=== PATIENT | male | born 1950 | race Caucasian/White ===

== ENCOUNTER 2017-04-18 20:57 | Emergency (ER) | payer MEDICARE ==
[2017-04-18] MEDS ORDERED: NS 0.9% 1000 ML* 1,000 ML IV ONE (22:59)
[2017-04-18 23:23] LABS: Hematocrit 41 % (42-52); Hemoglobin 14.3 g/dl (14.0-18.0); Mean Corpuscular HGB Conc 35 g/dl (31-36); Mean Corpuscular Hemoglobin 34 pg (27-31); Mean Corpuscular Volume 96 fL (80-94); Mean Platelet Volume 9 um3 (7.4-10.4); Red Blood Count 4.27 10^6/ul (4.0-5.4); Red Cell Distribution Width 13 % (10.5-15)
[2017-04-18 23:38] LABS: Albumin 4.2 g/dL (3.2-5.2); Calcium 9.1 mg/dL (8.6-10.3); EGFR African American 118.5 (>60); EGFR Non-African American 92.1 (>60); Globulin 2.5 g/dL (2-4); Potassium 3.5 mmol/L (3.5-5.0); Total Bilirubin 1.3 mg/dL (0.2-1.0); Total Protein 6.7 g/dL (6.4-8.9)
[2017-04-18 23:41] LABS: Urine Bilirubin Negative (Negative); Urine Glucose Negative (Negative); Urine Nitrite Negative (Negative)
[2017-04-19 00:43] VITALS: BP 145/94
--- NOTE | 2017-04-19 07:41 | RAD ---
INDICATION: Fever. COMPARISON: There are no prior studies available for comparison. TECHNIQUE: A portable view of the chest was obtained. FINDINGS: Cardiac and mediastinal contours appear to be within normal limits. The lungs are clear. No pleural effusion is seen. IMPRESSION: NO EVIDENCE FOR ACUTE DISEASE.
--- NOTE | 2017-04-20 00:35 | ED ---
Sridhar Stevenson Angela, scribed for Odilia Munoz MD on 04/18/17 at 2305 . HPI Febrile Illness - HPI Summary HPI Summary: This pt is a 66 y/o male presenting to [facility] c/o nausea, diarrhea, chills and tremors since 1600 today. Pt reports a subjective fever as he did not take his temperature. Pt denies chest pain, SOB, nausea, abd pain, new back pain, dysuria , hematuria, bloody stools. 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 Pt is currently being treated for depression and anxiety. He denies SI or HI. He states he took a double dose of his Citalopram. Pt states he drinks every night 3-4 glasses of wine. PSHx: hernia surgery. - History of Current Complaint Chief Complaint: EDFever Hx Obtained From: Patient Onset/Duration: Started Hours Ago Timing: Lasting Hours Pain Intensity: 6 Pain Scale Used: 0-10 Numeric Aggravating Factors: Nothing Alleviating Factors: Nothing Associated Signs and Symptoms: Chills, Other: - tremors - Allergy/Home Medications Allergies/Adverse Reactions: Allergies Allergy/AdvReac Type Severity Reaction Status Date / Time Penicillins Allergy Nausea And Verified 04/18/17 21:10 Vomiting Sulfa Antibiotics Allergy Nausea And Verified 04/18/17 21:10 Vomiting PMH/Surg Hx/FS Hx/Imm Hx Endocrine/Hematology History: Denies: Hx Diabetes Cardiovascular History: Denies: Hx Hypertension Infectious Disease History: No Infectious Disease History: Denies: Traveled Outside the [place] in Last 30 Days - Family History Known Family History: Negative: Blood Disorder - Social History Alcohol Use: Daily Alcohol Amount: 3-4 glasses of wine Substance Use Type: Reports: None Smoking Status (MU): Never Smoked Tobacco Review of Systems Positive: Fever, Chills Eyes: Negative ENT: Negative Cardiovascular: Negative Respiratory: Negative Positive: Vomiting, Diarrhea, Nausea Genitourinary: Negative Skin: Negative Neurological: Negative Psychological: Normal All Other Systems Reviewed And Are Negative: No Physical Exam Triage Information Reviewed: Yes Vital Signs On Initial Exam: Initial Vitals Temp Pulse Resp BP Pulse Ox 99.1 F 94 18 163/103 96 04/18/17 21:06 04/18/17 21:06 04/18/17 21:06 04/18/17 21:06 04/18/17 21:06 Vital Signs Reviewed: Yes Appearance: Positive: Well-Nourished Skin: Positive: Warm, Skin Color Reflects Adequate Perfusion, Dry Head/Face: Positive: Normal Head/Face Inspection Eyes: Positive: Normal ENT: Positive: Other - Minimally dry oral mucosa Neck: Positive: Supple, Nontender Respiratory/Lung Sounds: Positive: Clear to Auscultation, Breath Sounds Present Cardiovascular: Positive: Normal, RRR Abdomen Description: Positive: Nontender, Soft Musculoskeletal: Positive: Normal, Other - No LE swelling. Negative: Edema Left , Edema Right Neurological: Positive: Normal, Sensory/Motor Intact, Alert, Oriented to Person Place, Time Psychiatric: Positive: Normal Diagnostics - Vital Signs Vital Signs Temp Pulse Resp BP Pulse Ox 04/18/17 22:22 99.3 F 04/18/17 22:11 77 93 04/18/17 22:10 155/85 04/18/17 21:06 99.1 F 94 18 163/103 96 - Laboratory Lab Results: Lab Results 04/18/17 04/18/17 04/18/17 Range/Units 23:10 23:10 23:10 WBC 5.0 (3.5-10.8) 10^3/ul RBC 4.27 (4.0-5.4) 10^6/ul Hgb 14.3 (14.0-18.0) g/dl Hct 41 L (42-52) % MCV 96 H (80-94) fL MCH 34 H (27-31) pg MCHC 35 (31-36) g/dl RDW 13 (10.5-15) % Plt Count 221 (150-450) 10^3/ul MPV 9 (7.4-10.4) um3 Neut % (Auto) 70.0 (38-83) % Lymph % (Auto) 15.2 L (25-47) % [place] % (Auto) 13.1 H (1-9) % Eos % (Auto) 0.5 (0-6) % Baso % (Auto) 1.2 (0-2) % Absolute Neuts (auto) 3.5 (1.5-7.7) 10^3/ul Absolute Lymphs (auto) 0.8 L (1.0-4.8) 10^3/ul Absolute Monos (auto) 0.7 (0-0.8) 10^3/ul Absolute Eos (auto) 0 (0-0.6) 10^3/ul Absolute Basos (auto) 0.1 (0-0.2) 10^3/ul Absolute Nucleated RBC 0 10^3/ul Nucleated RBC % 0 Sodium 136 (133-145) mmol/L Potassium 3.5 (3.5-5.0) mmol/L Chloride 99 L (101-111) mmol/L Carbon Dioxide 26 (22-32) mmol/L Anion Gap 11 (2-11) mmol/L BUN 10 (6-24) mg/dL Creatinine 0.83 (0.67-1.17) mg/dL Est GFR ( Amer) 118.5 (>60) Est GFR (Non-Af Amer) 92.1 (>60) BUN/Creatinine Ratio 12.0 (8-20) Glucose 106 H (70-100) mg/dL Lactic Acid 1.2 (0.5-2.0) mmol/L Calcium 9.1 (8.6-10.3) mg/dL Total Bilirubin 1.30 H (0.2-1.0) mg/dL AST 75 H (13-39) U/L ALT 30 (7-52) U/L Alkaline Phosphatase 117 H (34-104) U/L Total Protein 6.7 (6.4-8.9) g/dL Albumin 4.2 (3.2-5.2) g/dL Globulin 2.5 (2-4) g/dL Albumin/Globulin Ratio 1.7 (1-3) Urine Color Urine Appearance Urine pH (5-9) Ur Specific [place] (1.010-1.030) Urine Protein (Negative) Urine Ketones (Negative) Urine Blood (Negative) Urine Nitrate (Negative) Urine Bilirubin (Negative) Urine Urobilinogen (Negative) Ur Leukocyte Esterase (Negative) Urine Glucose (Negative) 04/18/17 Range/Units 23:29 WBC (3.5-10.8) 10^3/ul RBC (4.0-5.4) 10^6/ul Hgb (14.0-18.0) g/dl Hct (42-52) % MCV (80-94) fL MCH (27-31) pg MCHC (31-36) g/dl RDW (10.5-15) % Plt Count (150-450) 10^3/ul MPV (7.4-10.4) um3 Neut % (Auto) (38-83) % Lymph % (Auto) (25-47) % [place] % (Auto) (1-9) % Eos % (Auto) (0-6) % Baso % (Auto) (0-2) % Absolute Neuts (auto) (1.5-7.7) 10^3/ul Absolute Lymphs (auto) (1.0-4.8) 10^3/ul Absolute Monos (auto) (0-0.8) 10^3/ul Absolute Eos (auto) (0-0.6) 10^3/ul Absolute Basos (auto) (0-0.2) 10^3/ul Absolute Nucleated RBC 10^3/ul Nucleated RBC % Sodium (133-145) mmol/L Potassium (3.5-5.0) mmol/L Chloride (101-111) mmol/L Carbon Dioxide (22-32) mmol/L Anion Gap (2-11) mmol/L BUN (6-24) mg/dL Creatinine (0.67-1.17) mg/dL Est GFR ( Amer) (>60) Est GFR (Non-Af Amer) (>60) BUN/Creatinine Ratio (8-20) Glucose (70-100) mg/dL Lactic Acid (0.5-2.0) mmol/L Calcium (8.6-10.3) mg/dL Total Bilirubin (0.2-1.0) mg/dL AST (13-39) U/L ALT (7-52) U/L Alkaline Phosphatase (34-104) U/L Total Protein (6.4-8.9) g/dL Albumin (3.2-5.2) g/dL Globulin (2-4) g/dL Albumin/Globulin Ratio (1-3) Urine Color Straw Urine Appearance Clear Urine pH 8.0 (5-9) Ur Specific [place] 1.004 L (1.010-1.030) Urine Protein Negative (Negative) Urine Ketones Trace H (Negative) Urine Blood Negative (Negative) Urine Nitrate Negative (Negative) Urine Bilirubin Negative (Negative) Urine Urobilinogen Negative (Negative) Ur Leukocyte Esterase Negative (Negative) Urine Glucose Negative (Negative) Result Diagrams: 04/18/17 23:10 04/18/17 23:10 Lab Statement: Any lab studies that have been ordered have been reviewed, and results considered in the medical decision making process. - Radiology Chest XR Xray Interpretation: No Acute Changes - Chest XR is normal. Radiology Interpretation Completed By: ED Physician Re-Evaluation - Re-Evaluation First Eval Re-Evaluation Time: 12:12 Comment: I reviewed lab and chest XR results with the pt. Course/Dx - Course Assessment/Plan: Pt is a 66 y/o male presenting to [facility] c/o nausea, diarrhea, chills and tremors since 1600 today. In the ED, pt was given IV fluids. Chest XR is normal. Pt will be discharged and is advised to follow up with his PCP. - Diagnoses Provider Diagnoses: Nausea and vomiting, Diarrhea Discharge - Discharge Plan Condition: Stable Disposition: HOME Patient Education Materials: Acute Nausea and Vomiting (ED), Acute Diarrhea (ED ) Referrals: Robert Ahn MD [Primary Care Provider] - 2 Days Additional Instructions: resume usual activities. return if worse or any new symptoms. It is important to follow up with your primary care physician 1-2 days. The documentation as recorded by the Sridhar kowalski Angela accurately reflects the service I personally performed and the decisions made by , Odilia Munoz MD.
== END 2017-04-19 00:56 | disposition home or self-care (01) ==
LOC: ED 20:57
DX: R11.2 Nausea with vomiting, unspecified (principal); R19.7 Diarrhea, unspecified; R50.9 Fever, unspecified
CPT/HCPCS: 36415; 71010; 80053; 81003; 83605; 85025; 96360; 99283

== ENCOUNTER 2019-07-29 16:40 | Inpatient (IN) | payer MEDICARE ==
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
[2019-07-29] MEDS ORDERED: NS 0.9% 1000 ML** 1,000 ML IV ONE ×2 (17:09→19:20)
--- NOTE | 2019-07-29 17:32 | ED ---
Complex/Multi-Sys Presentation - HPI Summary HPI Summary: Per daughter patient complains of tremors, decreased memory, generalized weakness. Patient has had prior episodes of same over the past few months but symptoms are progressive and worse today than before. Daughter states patient couldn't even get out of bed today. Patient is normally ambulatory, exercises regularly on the elliptical. Patient states he has been eating less, as he just does not feel like eating over the past couple weeks. Patient is vegetarian. When patient asked if he drinks alcohol, patient's answer varies. Nurse states she told him he had 5 glasses of wine daily, patient of this provider he had 2 glasses of wine daily. Daughter and patient deny headache, vision change, unilateral deficits, speech change, altered mental status, facial droop, fever, cough, sore throat, CP, SOB, N/V/V abdominal pain, change in urine, change in BM. Patient is hypertensive in triage. Denies history of hypertension. No anti-coag. - History Of Current Complaint Chief Complaint: EDWeakness Time Seen by Provider: 07/29/19 17:02 Hx Obtained From: Patient, Family/Associate Veterinarian Onset/Duration: Gradual Onset, Lasting Days Timing: Constant Severity Currently: Moderate Severity Initially: Moderate Associated Signs And Symptoms: Positive: Weakness - Allergies/Home Medications Allergies/Adverse Reactions: Allergies Allergy/AdvReac Type Severity Reaction Status Date / Time Penicillins AdvReac Nausea And Verified 07/29/19 18:31 Vomiting Sulfa (Sulfonamide AdvReac Nausea And Verified 07/29/19 18:31 Antibiotics) Vomiting Home Medications: Home Medications Ammonium Lactate 12% [Lac-Hydrin 12 %] 12 % TOPICAL BID 07/29/19 [History Confirmed 07/29/19] Atorvastatin* [Lipitor*] 40 mg PO DAILY 07/29/19 [History Confirmed 07/29/19] Fluoxetine (Nf) Cap [Fluoxetine HCl] 40 mg PO DAILY 07/29/19 [History Confirmed 07/29/19] Imipramine (NF) 25 mg PO BEDTIME 07/29/19 [History Confirmed 07/29/19] Multivitamin/Iron/Folic Acid [Daily Vitamin Formula+Ir] 1 tab PO DAILY 07/29/19 [History Confirmed 07/29/19] PMH/Surg Hx/FS Hx/Imm Hx Endocrine/Hematology History: Denies: Hx Diabetes Cardiovascular History: Denies: Hx Hypertension History: Denies: Hx Dialysis Sensory History: Denies: Hx Eye Prosthesis Opthamlomology History: Denies: Hx Legally Blind EENT History: Denies: Hx Deafness Neurological History: Denies: Hx Dementia - Immunization History Date of Influenza Vaccine: 04/25 Immunizations Up to Date: Yes Infectious Disease History: No Infectious Disease History: Denies: Traveled Outside the [place] in Last 30 Days - Family History Known Family History: Negative: Blood Disorder - Social History Alcohol Use: Daily Alcohol Amount: 3-4 glasses of wine Substance Use Type: Reports: None Smoking Status (MU): Never Smoked Tobacco Review of Systems Positive: Fatigue Eyes: Negative ENT: Negative Cardiovascular: Negative Respiratory: Negative Gastrointestinal: Negative Genitourinary: Negative Musculoskeletal: Negative Skin: Negative Positive: Weakness Psychological: Normal All Other Systems Reviewed And Are Negative: Yes Physical Exam - Summary Physical Exam Summary: Intentional tremors noted to hands. No cogwheel rigidity noted. No diaphoresis , nausea or vomiting or anxiety noted. Patient calm and cooperative and coherent. Neuro exam normal. Abdomen soft nontender. Lung sounds clear to auscultation bilaterally. Mildly tachycardic. Triage Information Reviewed: Yes Vital Signs On Initial Exam: Initial Vitals Temp Pulse Resp BP Pulse Ox 97.8 F 96 16 179/109 98 07/29/19 16:49 07/29/19 16:49 07/29/19 16:49 07/29/19 16:49 07/29/19 16:49 Vital Signs Reviewed: Yes Appearance: Positive: Well-Appearing Skin: Positive: Warm Head/Face: Positive: Normal Head/Face Inspection Eyes: Positive: Normal Neck: Positive: Supple Respiratory/Lung Sounds: Positive: Clear to Auscultation Cardiovascular: Positive: Normal Abdomen Description: Positive: Nontender Musculoskeletal: Positive: Normal Neurological: Positive: Normal Psychiatric: Positive: Normal AVPU Assessment: Alert - [place] Coma Scale Best Eye Response: 4 - Spontaneous Best Motor Response: 6 - Obeys Commands Best Verbal Response: 5 - Oriented Coma Scale Total: 15 Procedures - Sedation Patient Received Moderate/Deep Sedation with Procedure: No Diagnostics - Vital Signs Vital Signs Temp Pulse Resp BP Pulse Ox 07/29/19 17:12 17 07/29/19 16:56 98.6 F 98 14 194/117 98 07/29/19 16:49 97.8 F 96 16 179/109 98 - Laboratory Result Diagrams: 07/30/19 04:28 07/30/19 04:28 Lab Statement: Any lab studies that have been ordered have been reviewed, and results considered in the medical decision making process. Complex Multi-Symp Course/Dx Course Of Treatment: Per daughter patient complains of tremors, decreased memory , generalized weakness. Patient has had prior episodes of same over the past few months but symptoms are progressive and worse today than before. Daughter states patient couldn't even get out of bed today. Patient is normally ambulatory, exercises regularly on the elliptical. Patient states he has been eating less, as he just does not feel like eating over the past couple weeks. Patient is vegetarian. When patient asked if he drinks alcohol, patient's answer varies. Nurse states she told him he had 5 glasses of wine daily, patient of this provider he had 2 glasses of wine daily. Daughter and patient deny headache, vision change, unilateral deficits, speech change, altered mental status, facial droop, fever, cough, sore throat, CP, SOB, N/V/V abdominal pain, change in urine, change in BM. Patient is hypertensive in triage. Denies history of hypertension. No anti-coag. Elevated BP. Mildly tachycardic. Vital signs otherwise within normal limits. EKG sinus tachycardia , heart rate of 100, prolonged QT interval. Brain CT unremarkable. Lactic 7.4. PH 7.28. CO2 18. Anion gap 22. Total bili 1.6, near patient baseline. AST 98. Alkaline phosphatase 166. EtOH 90. 3 L normal saline administered. One banana bag. Ativan 1 mg 1, Ativan 2 mg IV 1. Tremors resolved with Ativan. Second troponin 0.08. Initial troponin 0.01. Repeat EKG sinus tachycardia with heart rate of 109. Prolonged QT interval. Admitted to hospitalist for alcoholic ketoacidosis. - Diagnoses Provider Diagnoses: Alcoholic ketoacidosis, Coarse tremors, Weakness Discharge ED - Sign-Out/Discharge Documenting (check all that apply): Patient Departure - Discharge Plan Condition: Stable Disposition: ADMITTED TO [facility] - Billing Disposition and Condition Condition: STABLE Disposition: Admitted to [facility] - Attestation Statements Provider Attestation: I agree w LETA documentation, briefly this is a 69 y/o male pw concern for AKA. Given fluids, banana bag. Had elevated troponin, no CP, repeat EKG w/o e/o ischemia. ADmit Betsey Garcia MD
[2019-07-29 17:53] LABS: ABS Basophils 0.1 10^3/ul (0-0.2); ABS Lymphocytes 0.9 10^3/ul (1.0-4.8); ABS Monocytes 0.6 10^3/ul (0-0.8); Eosinophil % 0.1 %; Hematocrit 45 % (42-52); Hemoglobin 15.6 g/dL (14.0-18.0); Mean Corpuscular HGB Conc 35 g/dL (31-36); Mean Corpuscular Hemoglobin 35 pg (27-31); Mean Corpuscular Volume 100 fL (80-94); Mean Platelet Volume 7.9 fL (7.4-10.4); Platelet Count 262 10^3/uL (150-450); Red Cell Distribution Width 13 % (10-15); White Blood Count 9.6 10^3/uL (3.5-10.8)
[2019-07-29 18:12] LABS: Troponin I 0.01 ng/mL (<0.03)
[2019-07-29 18:13] LABS: ALT 36 U/L (7-52); AST 98 U/L (13-39); Albumin 4.5 g/dL (3.2-5.2); Albumin/Globulin Ratio 1.5 (1-3); Alkaline Phosphatase 166 U/L (34-104); Anion Gap 22 mmol/L (2-11); BUN/Creatinine Ratio 20.5 (8-20); Blood Urea Nitrogen 15 mg/dL (6-24); C Reactive Protein < 1.00 mg/L (<8.01); CO2 Carbon Dioxide 18 mmol/L (22-32); Calcium 9.1 mg/dL (8.6-10.3); Chloride 99 mmol/L (101-111); EGFR African American 128.2 (>60); EGFR Non-African American 105.9 (>60); Globulin 3.1 g/dL (2-4); Glucose 79 mg/dL (70-100); Magnesium 1.9 mg/dL (1.9-2.7); Potassium 3.6 mmol/L (3.5-5.0); Sodium 139 mmol/L (135-145); Total Protein 7.6 g/dL (6.4-8.9)
[2019-07-29 18:15] LABS: Urine Appearance Clear; Urine Bilirubin Negative (Negative); Urine Blood Negative (Negative); Urine Color Yellow; Urine Glucose Negative (Negative); Urine Ketones 2+ (Negative); Urine Nitrite Negative (Negative); Urine Protein Negative (Negative); Urine Specific Gravity 1.016 (1.010-1.030); Urine Urobilinogen Negative (Negative)
[2019-07-29 18:21] LABS: Alcohol 90 mg/dL (<10)
[2019-07-29] MEDS ORDERED: Thiamine INJ* 100 MG, Folic Acid IV* 1 MG, Multiple Vitamin IV ADULT* 10 ML in NS 0.9% ... IV ONE (18:22)
[2019-07-29] MEDS ORDERED: LORazepam INJ* 2 MG/ML 1 ML VIAL IV PUSH ONE (18:24)
[2019-07-29] MEDS ORDERED: Lorazepam PYXIS KEY PRN ×2 (18:24→19:19)
[2019-07-29 18:31] LABS: TSH (Thyroid Stimulating Horm) 1.52 mcIU/mL (0.34-5.60)
[2019-07-29] MEDS ORDERED: LORazepam INJ* 2 MG/ML 1 ML VIAL IV ONE (19:19)
[2019-07-29] MEDS ORDERED: Lorazepam PYXIS KEY ONE (19:22)
[2019-07-29 20:15] LABS: Hepatitis B Surface Antigen Nonreactive (Nonreactive)
[2019-07-29 20:32] LABS: Hepatitis C Antibody Negative (Negative)
[2019-07-29 20:43] LABS: Troponin I 0.08 ng/mL (<0.03)
[2019-07-29] MEDS ORDERED: Acetaminophen TAB* 325 MG PO PRN (21:03)
[2019-07-29] MEDS ORDERED: LORazepam TAB(*) 1 MG PO ONE (21:14)
[2019-07-29] MEDS ORDERED: NS 0.9% 1000 ML** 1,000 ML IV SCH (21:15)
[2019-07-29 21:29] LABS: Magnesium 1.6 mg/dL (1.9-2.7)
[2019-07-29] MEDS ORDERED: Ondansetron INJ* 2 MG/ML VIAL IV PRN (21:32)
[2019-07-29] MEDS: Enoxaparin(*) 40 MG/0.4 ML SYR SUBCUT SCH (23:19)
[2019-07-29] MEDS: NS 0.9% 1000 ML** 1,000 ML IV SCH (23:20)
[2019-07-30 00:11] LABS: Influenza A Molecular NEGATIVE (Negative); Influenza B Molecular NEGATIVE (Negative)
--- NOTE | 2019-07-30 00:39 | HP ---
ADMISSION HISTORY AND PHYSICAL: DATE OF ADMISSION: 07/29/19 PRIMARY CARE PROVIDER: Dr. Ahn. PROVIDER: Everardo Orozco NP. ATTENDING PHYSICIAN: Dr. Jordan Herring.* (DICTATED BY EVERARDO OROZCO NP) CHIEF COMPLAINT: Tremors, weakness. HISTORY OF PRESENT ILLNESS: This is a 69-year-old male with a past medical history significant for hyperlipidemia, depression, anxiety and recently diagnosed hypertension, who came to the emergency room on 07/29/19 for several- week history of worsening tremors, decreased memory and generalized weakness. He stated that he used to work out every day on his elliptical, but his workouts have slowed down secondary to his weakness. Denies having fall at the time that he noticed his symptoms starting and he stated he felt congested for a few days where he was coughing, though had no sneezing with occasionally short of breath with exertion. Denied any chest pain or palpitations. He also states that he has had loose stool intermittently for a few weeks, tends to go about twice a day that is on the more liquid side. He also reports having had poor appetite over the past few weeks and has not had a solid meal in 2 days, and he drinks about 2 to 4 glasses of wine at night and states that his pattern of intake has not changed. His last alcoholic drink was last night. In the emergency room, he received banana bag IV fluids and IV as well as p.o. Ativan. EKG, brain CT, liver ultrasound were performed and hospice was asked to evaluate the patient for admission. PAST MEDICAL HISTORY: 1. Hyperlipidemia. 2. Hypertension. 3. Anxiety. 4. Depression. 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 PAST SURGICAL HISTORY: None. HOME MEDICATIONS: 1. Imipramine 25 mg p.o. at bedtime. 2. Fluoxetine 40 mg p.o. daily. 3. Multivitamin 1 tablet p.o. daily. 4. Atorvastatin 40 mg p.o. daily. 5. Ammonium lactate topically 12% one application b.i.d. ALLERGIES: To PENICILLIN and SULFA. FAMILY HISTORY: Father had an [place] at 48, at 64. Mother had depression. Sister had hypertension. SOCIAL HISTORY: Denies tobacco use or recreational substance use. His reported alcohol intake is 2 to 4 glasses of wine at night. He is retired, used to work at [employer]. He is and has 2 stepchildren. He exercises regularly on elliptical up until several weeks ago. REVIEW OF SYSTEMS: A 14-point system review was performed which was positive for poor appetite, tremors, poor memory, generalized weakness, coughing, occasional shortness of breath, loose stools. It was negative for chest pain, fevers, chills, hemoptysis, nausea, vomiting, abdominal pain, dysuria, dysphagia , rashes, lesions, or arthralgias or myalgias. PHYSICAL EXAMINATION GENERAL: This is a well-developed gentleman seen resting in the stretcher, appears unkempt in mild distress, is tremoring. VITAL SIGNS: 98.6 Fahrenheit, 109 pulse, 18 respirations, 97% oxygen on room air, 159/81 blood pressure. HEENT: Conjunctivae pink and moist. PERRLA. EOMs intact. Oropharynx clear. Mucous membranes dry. . NECK: Supple. No cervical or supraclavicular lymphadenopathy noted. RESPIRATORY: Lung sounds clear throughout bilaterally on room air. No accessory muscle use noted. CARDIAC: S1, S2 present. Heart rate regular, but tachy. No murmurs, gallops or rubs appreciated. +2 positive pedal pulses. No lower extremity edema. ABDOMEN: Soft, nontender, nondistended with positive bowel sounds x4. MUSCULOSKELETAL: No clubbing or cyanosis of the digits. Full range of motion. SKIN: The face is red and peely. No other rashes or open areas appreciated. NEUROLOGIC: Sensation intact to light touch. No focal deficits appreciated. PSYCH: Alert and oriented x3. Thought content organized. PERTINENT LABORATORY DATA: White blood cell count 9.6. Venous blood gas: VBG pH of 7.28, VBG pCO2 32, VBG pO2 52.0, VBG HCO3 16.3, VBG O2 saturation 84.6 , VBG base excess -10.6, chloride 99, carbon dioxide 18, anion gap 22, BUN and creatinine ratio 20.5, lactic acid 4.4 down from 7.4, total bilirubin 1.6. AST 98, ALT 36, alkaline phosphatase 166. Troponin 0.08, B-natriuretic peptide 35. Urine is negative. Serum alcohol is 90. DIAGNOSTIC STUDIES: CT of the brain showed no acute intracranial pathology. Chest x-ray showed no acute cardiopulmonary disease. ASSESSMENT AND PLAN: My impression, this is a 69-year-old male with past medical history significant for hyperlipidemia, hypertension, depression and anxiety, who is admitted on 07/29/19 for alcoholic ketoacidosis. 1. Alcoholic ketoacidosis. We will place the patient on WAM protocol and hydrate with normal saline at 100 mL an hour, will receive 2 mg of p.o. Ativan standing b.i.d., and folic and thiamine daily. Placed the patient on telemetry monitoring and order physical therapy due to his reported ongoing weakness. Other differentials include seizures. 2. Hypertension. The patient came in to the emergency room hypertensive in the 190s/one teens as high as 212/129, though without intervention he has decreased to be 150s/80s. The patient stated that he was started on blood pressure medications 2 weeks ago without any previous history of hypertension. He is unable to remember the medication that he typically takes so he believes it might be hydrochlorothiazide which we will hold during his stay as we are trying to hydrate him and instead start him on clonidine. 3. Depression/anxiety. We will continue his fluoxetine and imipramine; however , it is a possibility that his imipramine may be contributing to his tremors though I feel it is more likely secondary to EtOH use. 4. Hyperlipidemia. Continue atorvastatin. 5. DVT prophylaxis. Initiate Lovenox use. 6. Code status is full code. DISPOSITION: To admit OBV to [address] [place] [address]. CONDITION: Guarded. TIME SPENT: Time spent on the patient is about 60 minutes with half of that spent [id number]. EVERARDO OROZCO, DIRECTOR OF NURSING [id number]/CPS #: [id number] MTDD
[2019-07-30] MEDS: LORazepam TAB(*) 1 MG PO SCH ×3 (01:19→20:40)
[2019-07-30 01:30] LABS: Troponin I 0.11 ng/mL (<0.03)
[2019-07-30 04:52] LABS: ABS Basophils 0.1 10^3/ul (0-0.2); ABS Lymphocytes 0.8 10^3/ul (1.0-4.8); ABS Monocytes 0.7 10^3/ul (0-0.8); ABS Neutrophils 2.7 10^3/ul (1.5-7.7); Eosinophil % 0.7 %; Hematocrit 36 % (42-52); Hemoglobin 12.6 g/dL (14.0-18.0); Lymphocyte % 19.3 %; Mean Corpuscular HGB Conc 35 g/dL (31-36); Mean Corpuscular Hemoglobin 34 pg (27-31); Mean Corpuscular Volume 97 fL (80-94); Mean Platelet Volume 7.8 fL (7.4-10.4); Nucleated Red Blood Cells % 0.1; Platelet Count 208 10^3/uL (150-450); Red Blood Count 3.73 10^6 /uL (4.18-5.48); Red Cell Distribution Width 13 % (10-15); White Blood Count 4.3 10^3/uL (3.5-10.8)
[2019-07-30 04:57] LABS: INR 1.02 (0.82-1.09)
[2019-07-30 05:12] LABS: Cholesterol 184 mg/dL; HDL Cholesterol 95.4 mg/dL; LDL Cholesterol 79 mg/dL; Triglycerides 50 mg/dL
[2019-07-30 05:20] LABS: Troponin I 0.08 ng/mL (<0.03)
[2019-07-30 05:24] LABS: Anion Gap 10 mmol/L (2-11); BUN/Creatinine Ratio 18.5 (8-20); Blood Urea Nitrogen 12 mg/dL (6-24); CO2 Carbon Dioxide 23 mmol/L (22-32); Calcium 7.8 mg/dL (8.6-10.3); Chloride 102 mmol/L (101-111); EGFR African American 146.5 (>60); EGFR Non-African American 121.1 (>60); Glucose 81 mg/dL (70-100); Potassium 3.8 mmol/L (3.5-5.0); Sodium 135 mmol/L (135-145)
[2019-07-30] MEDS: FLUoxetine CAP* 20 MG PO SCH (08:45)
[2019-07-30] MEDS: Atorvastatin* 40 MG TAB PO SCH (08:45)
[2019-07-30] MEDS: Thiamine TAB* 100 MG TAB PO SCH (08:45)
[2019-07-30] MEDS: Multivitamins/Minerals TAB PO SCH (08:46)
[2019-07-30] MEDS: Folic Acid TAB* 1 MG PO SCH (08:46)
[2019-07-30] MEDS ORDERED: Aspirin EC TAB* 325 MG PO ONE (09:00)
[2019-07-30] MEDS ORDERED: cloNIDine TAB* 0.1 MG PO SCH (09:00)
[2019-07-30] MEDS ORDERED: Atorvastatin* 40 MG TAB PO SCH (09:00)
[2019-07-30] MEDS ORDERED: Magnesium Sulfate IV* 3 GM in NS 0.9% 100 ML* 100 ML IVPB ONE (10:57)
--- NOTE | 2019-07-30 11:15 | PN ---
Subjective Date of Service: 07/30/19 Interval History: Mr. Boykin is feeling a little better today. He is unclear about all the events from yesterday, but remembers coming into the ED. He admits that he has been eating poorly at home, but his PCP told him to stop eating dairy d/t HTN and that has been difficult for him because he is a vegetarian. Feels shaky and weak. Denies CP or SOB. No concerns from nursing. Family History: Unchanged from Admission Social History: Unchanged from Admission Past Medical History: Unchanged from Admission Objective Active Medications: Acetaminophen (Tylenol Tab*) 650 mg PO Q4H PRN MILD PAIN or TEMP > 100.4 Atorvastatin Calcium (Lipitor*) 60 mg PO DAILY RENARD Clonidine HCl (Catapres Tab*) 0.1 mg PO BID RENARD Enoxaparin Sodium (Lovenox(*)) 40 mg SUBCUT Q24H RENARD Fluoxetine HCl (Prozac Cap*) 40 mg PO DAILY RENARD Folic Acid (Folvite Tab*) 1 mg PO DAILY RENARD Sodium Chloride (Ns 0.9% 1000 Ml) 1,000 mls @ 100 mls/hr IV PER RATE RENARD Magnesium Sulfate 3 gm/ Sodium (Chloride) 106 mls @ 53 mls/hr IVPB ONCE ONE Imipramine HCl (Imipramine (Nf)) 25 mg PO BEDTIME RENARD; Protocol Lorazepam (Ativan Tab(*)) 0 - 6 mg PO .PER [facility] PROTOCOL RENARD; Protocol Lorazepam (Ativan Tab(*)) 2 mg PO BID RENARD Multivitamins/Minerals (Theragran/Minerals Tab*) 1 tab PO DAILY RENARD Ondansetron HCl (Zofran Inj*) 4 mg IV Q4H PRN NAUSEA/VOMITING Senna (Senokot 8.6 Mg Tab*) 1 tab PO BEDTIME RENARD Thiamine HCl (Vitamin B-1 Tab*) 100 mg PO DAILY RENARD Vital Signs - 8 hr 07/30/19 07/30/19 07/30/19 03:48 05:28 07:15 Temperature 98.2 F 98.6 F Pulse Rate 85 88 Respiratory 20 18 20 Rate Blood Pressure 169/92 140/83 (mmHg) O2 Sat by Pulse 97 98 Oximetry Oxygen Devices in Use Now: None Appearance: Elderly male lying in bed in NAD Ears/Nose/Mouth/Throat: Mucous Membranes Moist Neck: NL Appearance and Movements; NL JVP, Trachea Midline Respiratory: Symmetrical Chest Expansion and Respiratory Effort, Clear to Auscultation Cardiovascular: NL Sounds; No Murmurs; No JVD, RRR Abdominal: NL Sounds; No Tenderness; No Distention Extremities: No Edema Neurological: Alert and Oriented x 3 Lines/Tubes/Other Access: Clean, Dry and Intact Peripheral IV Nutrition: Taking PO's Result Diagrams: 07/30/19 04:28 07/30/19 04:28 Assess/Plan/Problems-Billing Assessment: Mr. Boykin is a 69 yo M with PMH of HTN, HLD, depression, anxiety, alcohol abuse ; who presented to the ED with tremors and weakness and was found to be in ketoacidosis. - Patient Problems (1) Ketoacidosis Code(s): E87.2 - ACIDOSIS Comment: - Combination of alcoholism and starvation; admitted to not eating 2 days prior to admission and drinking 4 glasses of wine daily - ABG on admission showing acidosis and UA with ketones - Encourage PO intake - Continue IVF (2) Alcohol withdrawal Code(s): F10.239 - ALCOHOL DEPENDENCE WITH WITHDRAWAL, UNSPECIFIED Comment: - WAM per protocol (3) Elevated troponin Code(s): R79.89 - OTHER SPECIFIED ABNORMAL FINDINGS OF BLOOD CHEMISTRY Comment : - No EKG changes or c/o CP - Suspect secondary to demand ischemia (4) Hypertension Code(s): I10 - ESSENTIAL (PRIMARY) HYPERTENSION Comment: - Hypertensive urgency on admission, now normotensive - Hold HCTZ - D/c clonidine d/t concern for rebound HTN - Start amlodipine (5) Hyperlipidemia Code(s): E78.5 - HYPERLIPIDEMIA, UNSPECIFIED Comment: - Continue atorvastatin (6) Anxiety and depression Code(s): F41.9 - ANXIETY DISORDER, UNSPECIFIED; F32.9 - MAJOR DEPRESSIVE DISORDER, SINGLE EPISODE, UNSPECIFIED Comment: - Continue fluoxetine, imipramine (7) DVT prophylaxis Code(s): Z29.9 - ENCOUNTER FOR PROPHYLACTIC MEASURES, UNSPECIFIED Comment: - Lovenox (8) Full code status Code(s): Z78.9 - OTHER SPECIFIED HEALTH STATUS Comment: Status and Disposition: Inpatient. Anticipate d/c home when medically stable, when done WAMing. Daughter able to provide strong outpatient support system. Attending: Vasile Moctezuma
[2019-07-30 11:42] LABS: Folate > 20.00 ng/mL (>3.99)
[2019-07-30] MEDS: NS 0.9% 1000 ML** 1,000 ML IV SCH (12:50)
--- NOTE | 2019-07-30 14:53 | ECHO ---
*[facility]* [place] [address] Fax #: [phone] Transthoracic Echocardiogram Patient: Neymar Boykin : 1950 Study Date: 07/30/2019 Age: 69 Gender: M HR: 87 bpm Height: 69 in /175.3 cm BSA: 1.82 m^2 Weight: 148.7 lb /67.6 kg BMI: 22 kg/m^2 *Information Security Risk Analyst: * Thais Prescott *Referring Physician: * Daniel Lowery MD ; Aline Hernandez *Reading Physician: * Daniel Lowery MD Indications: Cardiomyopathy. History: Anxiety, depression. Risk factors: Hypertension. Dyslipidemia. Conclusions Summary: - Left ventricle: Systolic function is at the lower limits of normal. The estimated ejection fraction is 50-55%. - Mitral valve: There is trace regurgitation. - Aortic valve: There is trace regurgitation. - No previous echocardiogram available. Study data: Transthoracic echocardiogram. Procedure: Transthoracic echocardiography was performed. Image quality was good. Complete 2D, spectral Doppler, and color flow Doppler. Location: Bedside. Patient status: Inpatient. Patient room number: 453-01. Findings Left ventricle: The cavity size is normal. Wall thickness is normal. Systolic function is at the lower limits of normal. The estimated ejection fraction is 50-55%. Wall motion is normal; there are no regional wall motion abnormalities. Left ventricular diastolic function parameters are normal. Right ventricle: The cavity size is normal. Systolic function is normal. Left atrium: The atrium is normal in size. Right atrium: The atrium is normal in size. Mitral valve: The valve is structurally normal. There is no evidence of stenosis. There is trace regurgitation. Aortic valve: The valve is trileaflet. The leaflets are normal thickness. There is no evidence of stenosis. There is trace regurgitation. Tricuspid valve: The valve is structurally normal. There is no evidence of stenosis. There is no significant regurgitation. Pulmonic valve: The valve is structurally normal. There is no evidence of stenosis. There is physiologic regurgitation. Aorta: The aortic root appears normal. The aortic arch appears normal. Pericardium: There is no significant pericardial effusion. Pulmonary arteries: Systolic pressure can not be accurately estimated. Systemic veins: Inferior vena cava: Not well visualized. Pulmonary veins: The Pulmonary veins appear normal. Measurements Left ventricle Value Ref Right atrium Value Ref SHANTELLE, LAX 4.8 cm 4.2 - 5.8 SI dim, ES 4.9 cm 3.4 - 5.3 ESD, LAX 2.7 cm 2.5 - 4.0 ML dim, ES, A4C 4.0 cm 2.6 - 4.4 FS, LAX (H) 44 % 25 SI dim, ES, A4C 4.9 cm 3.4 - 5.3 PW, ED, LAX (H) 1.2 cm 0.6 - 1.0 FS (H) 44 % 25 Aortic valve Value Ref Mid-wall FS 18 % --------- Peak v, S 1.23 m/sec --------- PW, ED (H) 1.2 cm 0.6 - 1.0 VTI, S 26.6 cm --------- PW/ID, ED 0.25 --------- Mean grad, S 4.0 mm Hg --------- E', lat kiara, TDI (L) 7.4 cm/sec >=10.0 Peak grad, S 6.0 mm Hg --- ------ E/e', lat kiara, TDI 7 --------- ORALIA, VTI 2.07 cm^2 ------ --- E', med kiara, TDI 7.3 cm/sec >=7.0 ORALIA, Vmax 1.98 cm^2 --- ------ E/e', med kiara, TDI 7 --------- E', avg, TDI 7.4 cm/sec --------- Mitral valve Value Ref E/e', avg, TDI 7 <=14 Peak E 0.5 m/sec --- ------ Peak A 0.78 m/sec --------- LVOT Value Ref Decel time 135 ms --------- Diam, S 2.00 cm --------- Peak E/A ratio 0.6 --------- Area 3.1 cm^2 --------- Peak jonas, S 0.78 m/sec --------- Pulmonic valve Value Ref Mean grad, S 1 mm Hg --------- Peak v, S 0.85 m/sec --------- SV 55 ml --------- Peak grad, S 3.0 mm Hg --------- Ventricular septum Value Ref Aortic root Value Ref IVS, ED 0.9 cm 0.6 - 1.0 Root diam 3.2 cm <4.0 Right ventricle Value Ref Ascending aorta Value Ref SHANTELLE, LAX 3.4 cm --------- AAo AP diam, S 3.0 cm --------- SHANTELLE minor ax, A4C (H) 3.9 cm 1.9 - 3.5 mid Decending aorta Value Ref S' lateral (L) 5.9 cm/sec 6.0 - Isaias peak jonas 0.68 m/sec ------ --- 13.4 Inferior vena cava Value Ref Left atrium Value Ref Diam 1.8 cm --------- ML dim, A4C 3.9 cm --------- SI dim, A4C 4.6 cm --------- Vol/bsa, ES, 1-p 23 ml/m^2 12 - 37 A4C Vol/bsa, ES, A/L 22 ml/m^2 16 - 34 Legend: (L) and (H) kayla values outside specified reference range. Prepared and electronically signed by Daniel Lowery MD 07/30/2019 14:53
[2019-07-30] MEDS: Senna TAB 8.6 mg* TAB PO SCH (20:40)
[2019-07-30] MEDS: CMC:Imipramine (NF) 25 MG TAB PO SCH (20:45)
[2019-07-30] MEDS: Enoxaparin(*) 40 MG/0.4 ML SYR SUBCUT SCH (22:47)
[2019-07-31 07:15] LABS: Urine Appearance Cloudy; Urine Bacteria Absent (Absent); Urine Bilirubin Negative (Negative); Urine Blood 3+ (Negative); Urine Glucose 1+(50 mg/dL) (Negative); Urine Ketones Negative (Negative); Urine Nitrite Negative (Negative); Urine Protein 1+(30 mg/dL) (Negative); Urine Red Blood Cell 3+(>10/hpf) (Absent); Urine Specific Gravity 1.006 (1.010-1.030); Urine Urobilinogen Negative (Negative); Urine White Blood Cell Trace(0-5/hpf) (Absent)
[2019-07-31 07:23] LABS: Urine Color Red
[2019-07-31 07:26] LABS: ABS Basophils 0.1 10^3/ul (0-0.2); ABS Eosinophils 0.1 10^3/ul (0-0.6); ABS Monocytes 0.7 10^3/ul (0-0.8); ABS Neutrophils 3.2 10^3/ul (1.5-7.7); Eosinophil % 1.8 %; Hematocrit 40 % (42-52); Lymphocyte % 19.8 %; Mean Corpuscular HGB Conc 35 g/dL (31-36); Mean Corpuscular Hemoglobin 34 pg (27-31); Mean Corpuscular Volume 97 fL (80-94); Mean Platelet Volume 8.4 fL (7.4-10.4); Platelet Count 231 10^3/uL (150-450); Red Blood Count 4.12 10^6 /uL (4.18-5.48); Red Cell Distribution Width 13 % (10-15); White Blood Count 5.1 10^3/uL (3.5-10.8)
[2019-07-31 07:38] LABS: BUN/Creatinine Ratio 8.8 (8-20); EGFR African American 139.1 (>60); Potassium 3.2 mmol/L (3.5-5.0)
[2019-07-31] MEDS ORDERED: Potassium Chlor TAB* 20 MEQ TAB.ER PO ONE (08:01)
[2019-07-31] MEDS: FLUoxetine CAP* 20 MG PO SCH (08:59)
[2019-07-31] MEDS: Thiamine TAB* 100 MG TAB PO SCH (08:59)
[2019-07-31] MEDS: amLODIPine TAB* 5 MG PO SCH (08:59)
[2019-07-31] MEDS: Folic Acid TAB* 1 MG PO SCH (08:59)
[2019-07-31] MEDS: Multivitamins/Minerals TAB PO SCH (09:00)
[2019-07-31] MEDS: LORazepam TAB(*) 1 MG PO SCH ×2 (09:00→20:20)
[2019-07-31] MEDS: KCL 20 MEQ/100 ML IVPREMIX* 20 MEQ/100 ML BAG IV SCH ×2 (09:01→13:59)
[2019-07-31] MEDS: Atorvastatin* 40 MG TAB PO SCH (09:01)
[2019-07-31 11:04] LABS: Troponin I 0.02 ng/mL (<0.03)
[2019-07-31 15:29] LABS: Albumin 3.8 g/dL (3.2-5.2); Albumin/Globulin Ratio 1.6 (1-3); BUN/Creatinine Ratio 12.9 (8-20); Calcium 8.6 mg/dL (8.6-10.3); EGFR African American 154.7 (>60); EGFR Non-African American 127.9 (>60); Globulin 2.4 g/dL (2-4); Potassium 3.6 mmol/L (3.5-5.0); Total Protein 6.2 g/dL (6.4-8.9)
--- NOTE | 2019-07-31 16:49 | PN ---
Subjective Date of Service: 07/31/19 Interval History: Patient with bright red blood in condom cath this morning, without clots per nursing. Patient incontinent of urine at times and he tells me this is not typical for him. Later urinated without any evidence of hematuria. Denies fever/ chills, chest pain, difficulty breathing, abd pain, low back pain/flank pain. Denies previous history of hematuria. Tells me he infrequently has difficulty starting a urine stream. Tells me he is not usually incontinent of urine but nursing tells me he is infrequently toileting himself without prompting while in the hospital. Family History: Unchanged from Admission Social History: Unchanged from Admission Past Medical History: Unchanged from Admission Objective Active Medications: Acetaminophen (Tylenol Tab*) 650 mg PO Q4H PRN PRN Reason: MILD PAIN or TEMP > 100.4 Amlodipine Besylate (Norvasc Tab*) 5 mg PO DAILY [facility] Last Admin: 07/31/19 08:59 Dose: 5 mg Atorvastatin Calcium (Lipitor*) 60 mg PO DAILY [facility] Last Admin: 07/31/19 09:01 Dose: 60 mg Enoxaparin Sodium (Lovenox(*)) 40 mg SUBCUT Q24H [facility] Last Admin: 07/30/19 22:47 Dose: 40 mg Fluoxetine HCl (Prozac Cap*) 40 mg PO DAILY [facility] Last Admin: 07/31/19 08:59 Dose: 40 mg Folic Acid (Folvite Tab*) 1 mg PO DAILY [facility] Last Admin: 07/31/19 08:59 Dose: 1 mg Imipramine HCl (Imipramine (Nf)) 25 mg PO BEDTIME [facility]; Protocol Last Admin: 07/30/19 20:45 Dose: 25 mg Lorazepam (Ativan Tab(*)) 0 - 6 mg PO .PER [facility] PROTOCOL [facility]; Protocol Last Admin: 07/30/19 01:19 Dose: 2 mg Lorazepam (Ativan Tab(*)) 2 mg PO BID [facility] Last Admin: 07/31/19 09:00 Dose: 2 mg Miscellaneous (Ativan Pyxis De Guzman) 1 ea N/A .ATIVAN IV DE GUZMAN PRN PRN Reason: PYXIS DE GUZMAN Multivitamins/Minerals (Theragran/Minerals Tab*) 1 tab PO DAILY [facility] Last Admin: 07/31/19 09:00 Dose: 1 tab Ondansetron HCl (Zofran Inj*) 4 mg IV Q4H PRN PRN Reason: NAUSEA/VOMITING Senna (Senokot 8.6 Mg Tab*) 1 tab PO BEDTIME [facility] Last Admin: 07/30/19 20:40 Dose: 1 tab Thiamine HCl (Vitamin B-1 Tab*) 100 mg PO DAILY [facility] Last Admin: 07/31/19 08:59 Dose: 100 mg Vital Signs - 8 hr 07/31/19 07/31/19 07/31/19 09:00 09:17 11:25 Temperature 97.8 F 97.8 F Pulse Rate 88 96 Respiratory 20 20 20 Rate Blood Pressure 147/99 136/91 (mmHg) O2 Sat by Pulse 100 100 Oximetry 07/31/19 07/31/19 13:54 15:16 Temperature 98.3 F 98.4 F Pulse Rate 94 98 Respiratory 20 16 Rate Blood Pressure 149/90 140/89 (mmHg) O2 Sat by Pulse 99 99 Oximetry Oxygen Devices in Use Now: None Appearance: Thin, elderly white male, laying upright in bed, appearing comfortable and in NAD Eyes: No Scleral Icterus, - - horizontal nystagmus Ears/Nose/Mouth/Throat: Mucous Membranes Moist Neck: Trachea Midline Respiratory: Symmetrical Chest Expansion and Respiratory Effort, Clear to Auscultation Cardiovascular: NL Sounds; No Murmurs; No JVD, RRR Abdominal: NL Sounds; No Tenderness; No Distention, - - no CVA tenderness Extremities: No Edema, No Clubbing, Cyanosis Skin: No Rash or Ulcers Neurological: Alert and Oriented x 3, - - very unsteady gait Result Diagrams: 07/31/19 06:44 07/31/19 14:58 Assess/Plan/Problems-Billing Assessment: Mr. Boykin is a 69 yo M with PMH of HTN, HLD, depression, anxiety, alcohol abuse ; who presented to the ED with tremors and weakness and was found to be in ketoacidosis. - Patient Problems (1) Wernickes encephalopathy Current Visit: Yes Status: Acute Code(s): E51.2 - WERNICKE'S ENCEPHALOPATHY SNOMED Code(s): 56345508 Comment: -daily alcohol use plus noted very unsteady gait and horizontal nystagmus on exam -changing po thiamine to 500mg IV TID -awaiting re-eval from PT (2) Alcohol withdrawal Current Visit: Yes Status: Acute Code(s): F10.239 - ALCOHOL DEPENDENCE WITH WITHDRAWAL, UNSPECIFIED SNOMED Code(s): 776174927 Comment: - WAM per protocol - no longer scoring later today (3) Hematuria Current Visit: Yes Status: Acute Code(s): R31.9 - HEMATURIA, UNSPECIFIED SNOMED Code(s): 15246966 Comment: -bright red hematuria, improved as the day has continued -no other urinary issues -renal and bladder US without acute findings, does demonstrate bladder diverticulum -discussed with Dr. Prado who recommends outpatient follow up with urology (4) Anxiety and depression Current Visit: Yes Status: Acute Code(s): F41.9 - ANXIETY DISORDER, UNSPECIFIED; F32.9 - MAJOR DEPRESSIVE DISORDER, SINGLE EPISODE, UNSPECIFIED SNOMED Code(s): 104486172 Comment: - Continue fluoxetine, imipramine (5) Elevated troponin Current Visit: Yes Status: Acute Code(s): R79.89 - OTHER SPECIFIED ABNORMAL FINDINGS OF BLOOD CHEMISTRY SNOMED Code(s): 862440238 Comment: - No EKG changes or c/o CP - Suspect secondary to demand ischemia - Troponin has downtrended (6) Ketoacidosis Current Visit: Yes Status: Acute Code(s): E87.2 - ACIDOSIS SNOMED Code(s) : 45701740 Comment: - Combination of alcoholism and starvation; admitted to not eating 2 days prior to admission and drinking 4 glasses of wine daily - ABG on admission showing acidosis and UA with ketones - Encourage PO intake - Continue IVF (7) Hypertension Current Visit: Yes Status: Acute Code(s): I10 - ESSENTIAL (PRIMARY) HYPERTENSION SNOMED Code(s): 27376722 Comment: - Hypertensive urgency on admission, now normotensive - D/c clonidine d/t concern for rebound HTN - continue new amlodipine (8) Hyperlipidemia Current Visit: Yes Status: Acute Code(s): E78.5 - HYPERLIPIDEMIA, UNSPECIFIED SNOMED Code(s): 88261351 Comment: - Continue atorvastatin (9) DVT prophylaxis Current Visit: Yes Status: Acute Code(s): Z29.9 - ENCOUNTER FOR PROPHYLACTIC MEASURES, UNSPECIFIED SNOMED Code(s): 901869134 Comment: - d/c Lovenox due to hematuria - SCDs (10) Full code status Current Visit: Yes Status: Acute Code(s): Z78.9 - OTHER SPECIFIED HEALTH STATUS SNOMED Code(s): 971331072 Comment: Status and Disposition: Inpatient. Pending PT evaluation
[2019-07-31] MEDS: Thiamine INJ* 500 MG in NS 0.9% 250 ML* 250 ML IV SCH ×2 (18:08→23:00)
[2019-07-31] MEDS: CMC:Imipramine (NF) 25 MG TAB PO SCH (20:19)
[2019-07-31] MEDS: Senna TAB 8.6 mg* TAB PO SCH (20:26)
[2019-08-01] MEDS ORDERED: Thiamine INJ* 500 MG in NS 0.9% 250 ML* 250 ML IV ONE (02:00)
[2019-08-01] MEDS: LORazepam TAB(*) 1 MG PO SCH ×6 (02:11→20:29)
[2019-08-01] MEDS: Thiamine INJ* 500 MG in NS 0.9% 250 ML* 250 ML IV SCH ×3 (09:00→20:32)
[2019-08-01] MEDS: Multivitamins/Minerals TAB PO SCH (09:01)
[2019-08-01] MEDS: Thiamine TAB* 100 MG TAB PO SCH (09:01)
[2019-08-01] MEDS: Folic Acid TAB* 1 MG PO SCH (09:01)
[2019-08-01] MEDS: amLODIPine TAB* 5 MG PO SCH (09:01)
[2019-08-01] MEDS: FLUoxetine CAP* 20 MG PO SCH (09:01)
[2019-08-01] MEDS: Atorvastatin* 40 MG TAB PO SCH (09:01)
[2019-08-01] MEDS ORDERED: Lorazepam PYXIS KEY PRN (11:57)
--- NOTE | 2019-08-01 16:23 | PN ---
Subjective Date of Service: 08/01/19 Interval History: Per nursing, patient is more agitated today. Rests after taking ativan per [facility] protocol. Awakens from sleep and answers questions appropriately today. Denies dysuria, fever/chills, abd pain, chest pain, difficulty breathing. Hematuria is resolved. Family History: Unchanged from Admission Social History: Unchanged from Admission Past Medical History: Unchanged from Admission Objective Active Medications: Acetaminophen (Tylenol Tab*) 650 mg PO Q4H PRN PRN Reason: MILD PAIN or TEMP > 100.4 Amlodipine Besylate (Norvasc Tab*) 5 mg PO DAILY [facility] Last Admin: 08/01/19 09:01 Dose: 5 mg Atorvastatin Calcium (Lipitor*) 60 mg PO DAILY [facility] Last Admin: 08/01/19 09:01 Dose: 60 mg Fluoxetine HCl (Prozac Cap*) 40 mg PO DAILY [facility] Last Admin: 08/01/19 09:01 Dose: 40 mg Folic Acid (Folvite Tab*) 1 mg PO DAILY [facility] Last Admin: 08/01/19 09:01 Dose: 1 mg Thiamine HCl 500 mg/ Sodium (Chloride) 255 mls @ 255 mls/hr IV TID [facility] Last Admin: 08/01/19 14:39 Dose: 255 mls/hr Imipramine HCl (Imipramine (Nf)) 25 mg PO BEDTIME [facility]; Protocol Last Admin: 07/31/19 20:19 Dose: 25 mg Lorazepam (Ativan Tab(*)) 0 - 6 mg PO .PER [facility] PROTOCOL [facility]; Protocol Last Admin: 08/01/19 16:01 Dose: 4 mg Lorazepam (Ativan Tab(*)) 2 mg PO BID [facility] Multivitamins/Minerals (Theragran/Minerals Tab*) 1 tab PO DAILY [facility] Last Admin: 08/01/19 09:01 Dose: 1 tab Ondansetron HCl (Zofran Inj*) 4 mg IV Q4H PRN PRN Reason: NAUSEA/VOMITING Senna (Senokot 8.6 Mg Tab*) 1 tab PO BEDTIME [facility] Last Admin: 07/31/19 20:26 Dose: Not Given Thiamine HCl (Vitamin B-1 Tab*) 100 mg PO DAILY [facility] Last Admin: 08/01/19 09:01 Dose: 100 mg Vital Signs - 8 hr 08/01/19 08/01/19 08/01/19 09:00 10:00 11:04 Temperature 97.2 F Pulse Rate 130 Respiratory 16 17 20 Rate Blood Pressure 144/81 (mmHg) O2 Sat by Pulse 99 Oximetry 08/01/19 08/01/19 08/01/19 11:17 12:58 14:02 Temperature 97.2 F Pulse Rate 93 Respiratory 20 18 20 Rate Blood Pressure 157/109 (mmHg) O2 Sat by Pulse 100 Oximetry 08/01/19 08/01/19 08/01/19 14:18 15:56 16:01 Temperature 98.1 F 98.3 F Pulse Rate 95 105 Respiratory 20 16 16 Rate Blood Pressure 144/95 141/105 (mmHg) O2 Sat by Pulse 100 100 Oximetry Oxygen Devices in Use Now: None Appearance: Thin, elderly white male, laying in bed, appearing comfortable and in NAD Eyes: No Scleral Icterus Ears/Nose/Mouth/Throat: Mucous Membranes Moist Neck: Trachea Midline Respiratory: Symmetrical Chest Expansion and Respiratory Effort, Clear to Auscultation Cardiovascular: NL Sounds; No Murmurs; No JVD, RRR Abdominal: - - abd soft, nontender, nondistended Extremities: No Edema, No Clubbing, Cyanosis Skin: No Rash or Ulcers Neurological: Alert and Oriented x 3, NL Muscle Strength and Tone Result Diagrams: 07/31/19 06:44 07/31/19 14:58 Microbiology and Other Data: Microbiology 07/31/19 06:45 Urine Culture - Final Urine Assess/Plan/Problems-Billing Assessment: Mr. Boykin is a 69 yo M with PMH of HTN, HLD, depression, anxiety, alcohol abuse ; who presented to the ED with tremors and weakness and was found to be in ketoacidosis. - Patient Problems (1) Wernickes encephalopathy Current Visit: Yes Status: Acute Code(s): E51.2 - WERNICKE'S ENCEPHALOPATHY SNOMED Code(s): 33176906 Comment: -daily alcohol use plus noted very unsteady gait and horizontal nystagmus on exam -continue thiamine to 500mg IV TID -likely his non-animal product diet has contributed as well; he plans to return to consuming dairy -awaiting re-eval from PT (2) Alcohol withdrawal Current Visit: Yes Status: Acute Code(s): F10.239 - ALCOHOL DEPENDENCE WITH WITHDRAWAL, UNSPECIFIED SNOMED Code(s): 961610978 Comment: - withdrawal symptoms worse today compared to yesterday; more tremulous, more agitated - continued scheduled ativan plus prn for WAM protocol (3) Hematuria Current Visit: Yes Status: Acute Code(s): R31.9 - HEMATURIA, UNSPECIFIED SNOMED Code(s): 29948775 Comment: -bright red hematuria on 07/31/19 -no other urinary issues -renal and bladder US without acute findings, does demonstrate bladder diverticulum -discussed with Dr. Prado who recommends outpatient follow up with urology -resolved today (4) Anxiety and depression Current Visit: Yes Status: Acute Code(s): F41.9 - ANXIETY DISORDER, UNSPECIFIED; F32.9 - MAJOR DEPRESSIVE DISORDER, SINGLE EPISODE, UNSPECIFIED SNOMED Code(s): 029187109 Comment: - Continue fluoxetine, imipramine (5) Ketoacidosis Current Visit: Yes Status: Acute Code(s): E87.2 - ACIDOSIS SNOMED Code(s) : 52133852 Comment: - Combination of alcoholism and starvation; admitted to not eating 2 days prior to admission and drinking 4 glasses of wine daily - ABG on admission showing acidosis and UA with ketones - Encourage PO intake (6) Elevated troponin Current Visit: Yes Status: Acute Code(s): R79.89 - OTHER SPECIFIED ABNORMAL FINDINGS OF BLOOD CHEMISTRY SNOMED Code(s): 176992366 Comment: - No EKG changes or c/o CP - Suspect secondary to demand ischemia - Troponin has downtrended (7) Hypertension Current Visit: Yes Status: Acute Code(s): I10 - ESSENTIAL (PRIMARY) HYPERTENSION SNOMED Code(s): 85946309 Comment: - Hypertensive urgency on admission, improving - D/c clonidine d/t concern for rebound HTN - continue new amlodipine (8) Hyperlipidemia Current Visit: Yes Status: Acute Code(s): E78.5 - HYPERLIPIDEMIA, UNSPECIFIED SNOMED Code(s): 52605172 Comment: - Continue atorvastatin (9) DVT prophylaxis Current Visit: Yes Status: Acute Code(s): Z29.9 - ENCOUNTER FOR PROPHYLACTIC MEASURES, UNSPECIFIED SNOMED Code(s): 557617777 Comment: - d/c Lovenox due to hematuria - SCDs (10) Full code status Current Visit: Yes Status: Acute Code(s): Z78.9 - OTHER SPECIFIED HEALTH STATUS SNOMED Code(s): 356126179 Comment: Status and Disposition: Inpatient. Pending PT evaluation, may need CHRIS at discharge
[2019-08-01] MEDS: CMC:Imipramine (NF) 25 MG TAB PO SCH (20:28)
[2019-08-01] MEDS: Senna TAB 8.6 mg* TAB PO SCH (20:29)
[2019-08-02] MEDS: LORazepam TAB(*) 1 MG PO SCH ×3 (04:24→21:20)
[2019-08-02] MEDS ORDERED: Thiamine INJ* 250 MG in NS 0.9% 100 ML* 100 ML IV SCH (08:00)
[2019-08-02] MEDS: Atorvastatin* 40 MG TAB PO SCH (09:02)
[2019-08-02] MEDS: Multivitamins/Minerals TAB PO SCH (09:03)
[2019-08-02] MEDS: Folic Acid TAB* 1 MG PO SCH (09:04)
[2019-08-02] MEDS: amLODIPine TAB* 5 MG PO SCH (09:04)
[2019-08-02] MEDS: FLUoxetine CAP* 20 MG PO SCH (09:04)
[2019-08-02] MEDS: Thiamine INJ* 500 MG in NS 0.9% 250 ML* 250 ML IV SCH ×2 (09:35→13:35)
[2019-08-02] MEDS ORDERED: LORazepam TAB(*) 1 MG PO PRN (10:38)
--- NOTE | 2019-08-02 10:44 | PN ---
Subjective Date of Service: 08/02/19 Interval History: pt feels well, still c/o tremors and unsteadiness. good appetite Family History: Unchanged from Admission Social History: Unchanged from Admission Past Medical History: Unchanged from Admission Objective Active Medications: Acetaminophen (Tylenol Tab*) 650 mg PO Q4H PRN PRN Reason: MILD PAIN or TEMP > 100.4 Amlodipine Besylate (Norvasc Tab*) 5 mg PO DAILY [facility] Last Admin: 08/02/19 09:04 Dose: 5 mg Atorvastatin Calcium (Lipitor*) 60 mg PO DAILY [facility] Last Admin: 08/02/19 09:02 Dose: 60 mg Fluoxetine HCl (Prozac Cap*) 40 mg PO DAILY [facility] Last Admin: 08/02/19 09:04 Dose: 40 mg Folic Acid (Folvite Tab*) 1 mg PO DAILY [facility] Last Admin: 08/02/19 09:04 Dose: 1 mg Thiamine HCl 500 mg/ Sodium (Chloride) 255 mls @ 255 mls/hr IV TID [facility] Stop: 08/02/19 14:59 Last Admin: 08/02/19 09:35 Dose: 255 mls/hr Thiamine HCl 250 mg/ Sodium (Chloride) 102.5 mls @ 205 mls/hr IV Q24H [facility] Stop: 08/07/19 23:59 Imipramine HCl (Imipramine (Nf)) 25 mg PO BEDTIME [facility]; Protocol Last Admin: 08/01/19 20:28 Dose: 25 mg Lorazepam (Ativan Tab(*)) 1 mg PO BID [facility] Lorazepam (Ativan Tab(*)) 1 mg PO Q6H PRN PRN Reason: withdrawal Multivitamins/Minerals (Theragran/Minerals Tab*) 1 tab PO DAILY [facility] Last Admin: 08/02/19 09:03 Dose: 1 tab Ondansetron HCl (Zofran Inj*) 4 mg IV Q4H PRN PRN Reason: NAUSEA/VOMITING Senna (Senokot 8.6 Mg Tab*) 1 tab PO BEDTIME [facility] Last Admin: 08/01/19 20:29 Dose: 1 tab Vital Signs - 8 hr 08/02/19 08/02/19 08/02/19 03:52 04:00 04:24 Temperature 97.1 F Pulse Rate 53 Respiratory 19 19 19 Rate Blood Pressure 142/77 (mmHg) O2 Sat by Pulse 99 Oximetry 08/02/19 08/02/19 08/02/19 06:00 06:18 07:15 Temperature 97.3 F 97.5 F Pulse Rate 77 78 Respiratory 18 18 20 Rate Blood Pressure 133/78 135/99 (mmHg) O2 Sat by Pulse 98 100 Oximetry 08/02/19 08/02/19 08/02/19 08:00 09:06 10:00 Temperature Pulse Rate Respiratory 20 20 20 Rate Blood Pressure (mmHg) O2 Sat by Pulse Oximetry Oxygen Devices in Use Now: None Appearance: 69 yo M in nAD, AAOx3, poor historian Eyes: No Scleral Icterus, PERRLA, - - horizontal nystagmus noted Ears/Nose/Mouth/Throat: NL Teeth, Lips, Gums, Mucous Membranes Moist Neck: NL Appearance and Movements; NL JVP, Trachea Midline Respiratory: Symmetrical Chest Expansion and Respiratory Effort, Clear to Auscultation Cardiovascular: NL Sounds; No Murmurs; No JVD, RRR Abdominal: NL Sounds; No Tenderness; No Distention Lymphatic: No Cervical Adenopathy Extremities: No Edema, No Clubbing, Cyanosis Skin: No Rash or Ulcers, No Nodules or Sclerosis, - - skin on face flashed Neurological: Alert and Oriented x 3, NL Muscle Strength and Tone, - - mild tremor b/l kands, horizontal nystagmus Result Diagrams: 07/31/19 06:44 07/31/19 14:58 Microbiology and Other Data: Microbiology 07/31/19 06:45 Urine Culture - Final Urine Assess/Plan/Problems-Billing Assessment: Mr. Boykin is a 69 yo M with PMH of HTN, HLD, depression, anxiety, alcohol abuse ; who presented to the ED with tremors and weakness and was found to be in ketoacidosis. - Patient Problems (1) Wernickes encephalopathy Comment: -daily alcohol use plus noted very unsteady gait and horizontal nystagmus on exam -continue thiamine to 500mg IV TID today then 250 mg IV daily -likely his non-animal product diet has contributed as well; he plans to return to consuming dairy -awaiting re-eval from PT (2) Alcohol withdrawal Comment: - withdrawal symptoms improved with scheduled Ativan. Will cont RENARD and prn Ativan, d/c WAM (3) Anxiety and depression Comment: - Continue fluoxetine, imipramine (4) Elevated troponin SNOMED Code(s): 497908726 Comment: -echo shows EF 50-55% with no wall motion abn. - No EKG changes or c/o CP - Suspect secondary to demand ischemia - Troponin has downtrended (5) Hematuria Comment: -bright red hematuria on 07/31/19 -no other urinary issues -renal and bladder US without acute findings, does demonstrate bladder diverticulum -discussed with Dr. Prado who recommends outpatient follow up with urology -resolved today (6) Hypertension Comment: - Hypertensive urgency on admission, improving - D/c clonidine d/t concern for rebound HTN - continue new amlodipine (7) Ketoacidosis Comment: -resolved - Combination of alcoholism and starvation; admitted to not eating 2 days prior to admission and drinking 4 glasses of wine daily - ABG on admission showing acidosis and UA with ketones - Encourage PO intake (8) DVT prophylaxis Comment: - d/c'd Lovenox due to hematuria - SCDs Status and Disposition: Inpatient. Pending PT evaluation, may need CHRIS at discharge
[2019-08-02] MEDS: CMC:Imipramine (NF) 25 MG TAB PO SCH (21:20)
[2019-08-02] MEDS: Senna TAB 8.6 mg* TAB PO SCH (21:21)
[2019-08-03 07:41] LABS: Albumin 3.5 g/dL (3.2-5.2); Albumin/Globulin Ratio 1.5 (1-3); BUN/Creatinine Ratio 21.2 (8-20); Calcium 9.1 mg/dL (8.6-10.3); Globulin 2.3 g/dL (2-4); Magnesium 1.6 mg/dL (1.9-2.7); Potassium 3.2 mmol/L (3.5-5.0); Total Bilirubin 1.2 mg/dL (0.2-1.0); Total Protein 5.8 g/dL (6.4-8.9)
[2019-08-03] MEDS ORDERED: KCL 20 MEQ/100 ML IVPREMIX* 20 MEQ/100 ML BAG IV ONE (08:18)
[2019-08-03] MEDS ORDERED: Potassium Chlor TAB* 20 MEQ TAB.ER PO ONE (08:18)
[2019-08-03] MEDS: Folic Acid TAB* 1 MG PO SCH (08:30)
[2019-08-03] MEDS: LORazepam TAB(*) 1 MG PO SCH (08:30)
[2019-08-03] MEDS ORDERED: NS 0.9% 1000 ML** 1,000 ML IV SCH (08:30)
[2019-08-03] MEDS: Atorvastatin* 40 MG TAB PO SCH (08:30)
[2019-08-03] MEDS: FLUoxetine CAP* 20 MG PO SCH (08:30)
[2019-08-03] MEDS: Multivitamins/Minerals TAB PO SCH (08:30)
[2019-08-03] MEDS: amLODIPine TAB* 5 MG PO SCH (08:31)
[2019-08-03] MEDS: Magnesium Oxide TAB* 400 MG PO SCH (08:55)
[2019-08-03] MEDS: Thiamine INJ* 250 MG in NS 0.9% 100 ML* 100 ML IV SCH (08:55)
--- NOTE | 2019-08-03 10:39 | PN ---
Subjective Date of Service: 08/03/19 Family History: Unchanged from Admission Social History: Unchanged from Admission Past Medical History: Unchanged from Admission Objective Active Medications: Acetaminophen (Tylenol Tab*) 650 mg PO Q4H PRN PRN Reason: MILD PAIN or TEMP > 100.4 Amlodipine Besylate (Norvasc Tab*) 5 mg PO DAILY [facility] Last Admin: 08/03/19 08:31 Dose: 5 mg Atorvastatin Calcium (Lipitor*) 60 mg PO DAILY [facility] Last Admin: 08/03/19 08:30 Dose: 60 mg Fluoxetine HCl (Prozac Cap*) 40 mg PO DAILY [facility] Last Admin: 08/03/19 08:30 Dose: 40 mg Folic Acid (Folvite Tab*) 1 mg PO DAILY [facility] Last Admin: 08/03/19 08:30 Dose: 1 mg Thiamine HCl 250 mg/ Sodium (Chloride) 102.5 mls @ 205 mls/hr IV Q24H [facility] Stop: 08/07/19 23:59 Last Admin: 08/03/19 08:55 Dose: 205 mls/hr Sodium Chloride (Ns 0.9% 1000 Ml) 1,000 mls @ 75 mls/hr IV PER RATE [facility] Stop: 08/03/19 21:49 Last Admin: 08/03/19 08:55 Dose: 75 mls/hr Imipramine HCl (Imipramine (Nf)) 25 mg PO BEDTIME [facility]; Protocol Last Admin: 08/02/19 21:20 Dose: 25 mg Lorazepam (Ativan Tab(*)) 1 mg PO BID [facility] Last Admin: 08/03/19 08:30 Dose: 1 mg Lorazepam (Ativan Tab(*)) 1 mg PO Q6H PRN PRN Reason: withdrawal Magnesium Oxide (Magox 400 Tab*) 800 mg PO DAILY [facility] Last Admin: 08/03/19 08:55 Dose: 800 mg Multivitamins/Minerals (Theragran/Minerals Tab*) 1 tab PO DAILY [facility] Last Admin: 08/03/19 08:30 Dose: 1 tab Ondansetron HCl (Zofran Inj*) 4 mg IV Q4H PRN PRN Reason: NAUSEA/VOMITING Senna (Senokot 8.6 Mg Tab*) 1 tab PO BEDTIME [facility] Last Admin: 08/02/19 21:21 Dose: 1 tab Vital Signs - 8 hr 08/03/19 08/03/19 08/03/19 03:15 05:17 08:30 Temperature 97.9 F Pulse Rate 84 Respiratory 20 16 18 Rate Blood Pressure 126/81 (mmHg) O2 Sat by Pulse 92 Oximetry Oxygen Devices in Use Now: None Result Diagrams: 07/31/19 06:44 08/03/19 06:39 Microbiology and Other Data: Microbiology 07/31/19 06:45 Urine Culture - Final Urine Assess/Plan/Problems-Billing Assessment: Mr. Boykin is a 69 yo M with PMH of HTN, HLD, depression, anxiety, alcohol abuse ; who presented to the ED with tremors and weakness and was found to be in ketoacidosis. - Patient Problems (1) Wernickes encephalopathy Comment: -daily alcohol use plus noted very unsteady gait and horizontal nystagmus on exam -continue thiamine to 500mg IV TID today then 250 mg IV daily -likely his non-animal product diet has contributed as well; he plans to return to consuming dairy -awaiting re-eval from PT (2) Alcohol withdrawal Comment: - withdrawal symptoms improved with scheduled Ativan. Will cont RENARD and prn Ativan, d/c WAM (3) Anxiety and depression Comment: - Continue fluoxetine, imipramine (4) Elevated troponin SNOMED Code(s): 160576970 Comment: -echo shows EF 50-55% with no wall motion abn. - No EKG changes or c/o CP - Suspect secondary to demand ischemia - Troponin has downtrended (5) Hematuria Comment: -bright red hematuria on 07/31/19 -no other urinary issues -renal and bladder US without acute findings, does demonstrate bladder diverticulum -discussed with Dr. Prado who recommends outpatient follow up with urology -resolved today (6) Hypertension Comment: - Hypertensive urgency on admission, improving - D/c clonidine d/t concern for rebound HTN - continue new amlodipine (7) Ketoacidosis Comment: -resolved - Combination of alcoholism and starvation; admitted to not eating 2 days prior to admission and drinking 4 glasses of wine daily - ABG on admission showing acidosis and UA with ketones - Encourage PO intake (8) DVT prophylaxis Comment: - d/c'd Lovenox due to hematuria - SCDs Status and Disposition: Inpatient. Pending PT evaluation, may need CHRIS at discharge
--- NOTE | 2019-08-03 10:45 | PN ---
Subjective Date of Service: 08/03/19 Interval History: Pt feels better every day. Still has unsteady gait and needs help with getting to the bathroom. He would like to be discharged home with the help of his daughter and his frends Family History: Unchanged from Admission Social History: Unchanged from Admission Past Medical History: Unchanged from Admission Objective Active Medications: Acetaminophen (Tylenol Tab*) 650 mg PO Q4H PRN PRN Reason: MILD PAIN or TEMP > 100.4 Amlodipine Besylate (Norvasc Tab*) 5 mg PO DAILY [facility] Last Admin: 08/03/19 08:31 Dose: 5 mg Atorvastatin Calcium (Lipitor*) 60 mg PO DAILY [facility] Last Admin: 08/03/19 08:30 Dose: 60 mg Fluoxetine HCl (Prozac Cap*) 40 mg PO DAILY [facility] Last Admin: 08/03/19 08:30 Dose: 40 mg Folic Acid (Folvite Tab*) 1 mg PO DAILY [facility] Last Admin: 08/03/19 08:30 Dose: 1 mg Thiamine HCl 250 mg/ Sodium (Chloride) 102.5 mls @ 205 mls/hr IV Q24H [facility] Stop: 08/07/19 23:59 Last Admin: 08/03/19 08:55 Dose: 205 mls/hr Sodium Chloride (Ns 0.9% 1000 Ml) 1,000 mls @ 75 mls/hr IV PER RATE [facility] Stop: 08/03/19 21:49 Last Admin: 08/03/19 08:55 Dose: 75 mls/hr Imipramine HCl (Imipramine (Nf)) 25 mg PO BEDTIME [facility]; Protocol Last Admin: 08/02/19 21:20 Dose: 25 mg Lorazepam (Ativan Tab(*)) 1 mg PO Q6H PRN PRN Reason: withdrawal Magnesium Oxide (Magox 400 Tab*) 800 mg PO DAILY [facility] Last Admin: 08/03/19 08:55 Dose: 800 mg Multivitamins/Minerals (Theragran/Minerals Tab*) 1 tab PO DAILY [facility] Last Admin: 08/03/19 08:30 Dose: 1 tab Ondansetron HCl (Zofran Inj*) 4 mg IV Q4H PRN PRN Reason: NAUSEA/VOMITING Senna (Senokot 8.6 Mg Tab*) 1 tab PO BEDTIME [facility] Last Admin: 08/02/19 21:21 Dose: 1 tab Vital Signs - 8 hr 08/03/19 08/03/19 08/03/19 03:15 05:17 08:30 Temperature 97.9 F Pulse Rate 84 Respiratory 20 16 18 Rate Blood Pressure 126/81 (mmHg) O2 Sat by Pulse 92 Oximetry Oxygen Devices in Use Now: None Appearance: 69 yo m in nAD, aAOx3 Eyes: No Scleral Icterus, PERRLA Ears/Nose/Mouth/Throat: NL Teeth, Lips, Gums, Mucous Membranes Moist Neck: NL Appearance and Movements; NL JVP, Trachea Midline Respiratory: Symmetrical Chest Expansion and Respiratory Effort, Clear to Auscultation Cardiovascular: NL Sounds; No Murmurs; No JVD, RRR Abdominal: NL Sounds; No Tenderness; No Distention, No Hepatosplenomegaly Lymphatic: No Cervical Adenopathy Extremities: No Edema Skin: No Rash or Ulcers, No Nodules or Sclerosis Neurological: Alert and Oriented x 3, - - mild tremor in b/l hands Result Diagrams: 07/31/19 06:44 08/03/19 06:39 Microbiology and Other Data: Microbiology 07/31/19 06:45 Urine Culture - Final Urine Assess/Plan/Problems-Billing Assessment: Mr. Boykin is a 69 yo M with PMH of HTN, HLD, depression, anxiety, alcohol abuse ; who presented to the ED with tremors and weakness and was found to be in ketoacidosis. - Patient Problems (1) Wernickes encephalopathy Comment: -daily alcohol use plus noted very unsteady gait and horizontal nystagmus on exam-resolving -continue thiamine 250 mg IV daily, then can switch to PO -likely his non-animal product diet has contributed as well; he plans to return to consuming dairy -awaiting re-eval from PT (2) Alcohol withdrawal Comment: - withdrawal symptoms improved with scheduled Ativan. Will taper down RENARD and cont prn Ativan (3) Anxiety and depression Comment: - Continue fluoxetine, imipramine (4) Elevated troponin Comment: -echo shows EF 50-55% with no wall motion abn. - No EKG changes or c/o CP - Suspect secondary to demand ischemia - Troponin has downtrended (5) Hematuria Comment: -bright red hematuria on 07/31/19 -no other urinary issues -renal and bladder US without acute findings, does demonstrate bladder diverticulum -discussed with Dr. Prado who recommends outpatient follow up with urology -resolved today (6) Hypertension Comment: - Hypertensive urgency on admission, improving - D/c clonidine d/t concern for rebound HTN - continue new amlodipine (7) Ketoacidosis Comment: -resolved - Combination of alcoholism and starvation; admitted to not eating 2 days prior to admission and drinking 4 glasses of wine daily - ABG on admission showing acidosis and UA with ketones - Encourage PO intake (8) Hyponatremia Comment: possibly hypovolemic will tx empirically with IVF (9) DVT prophylaxis Comment: - d/c'd Lovenox due to hematuria - SCDs Status and Disposition: Inpatient. Pending PT evaluation, may need CHRIS at discharge, but prefers to go home. Likely d/c on 08/04.
[2019-08-03] MEDS: CMC:Imipramine (NF) 25 MG TAB PO SCH (20:52)
[2019-08-03] MEDS: Senna TAB 8.6 mg* TAB PO SCH (20:53)
[2019-08-03] MEDS ORDERED: LORazepam TAB(*) 0.5 MG PO SCH (21:00)
[2019-08-04 06:28] LABS: BUN/Creatinine Ratio 18.5 (8-20); Calcium 8.8 mg/dL (8.6-10.3); EGFR African American 146.5 (>60); EGFR Non-African American 121.1 (>60); Magnesium 1.6 mg/dL (1.9-2.7); Potassium 3.6 mmol/L (3.5-5.0)
[2019-08-04] MEDS ORDERED: Magnesium Sulfate IV* 3 GM in NS 0.9% 100 ML* 100 ML IVPB ONE (07:14)
[2019-08-04] MEDS: Atorvastatin* 40 MG TAB PO SCH (08:47)
[2019-08-04] MEDS: amLODIPine TAB* 5 MG PO SCH (08:47)
[2019-08-04] MEDS: Magnesium Oxide TAB* 400 MG PO SCH (08:47)
[2019-08-04] MEDS: FLUoxetine CAP* 20 MG PO SCH (08:47)
[2019-08-04] MEDS: Folic Acid TAB* 1 MG PO SCH (08:47)
[2019-08-04] MEDS: Multivitamins/Minerals TAB PO SCH (08:47)
[2019-08-04] MEDS: Thiamine INJ* 250 MG in NS 0.9% 100 ML* 100 ML IV SCH (10:09)
[2019-08-04 11:25] VITALS: BP 116/81
--- NOTE | 2019-08-04 12:40 | DS ---
CC: Dr. Ahn * DISCHARGE SUMMARY: DATE OF ADMISSION: 07/29/19 DATE OF DISCHARGE: 08/04/19 PRIMARY CARE PROVIDER: Dr. Ahn. DISPOSITION AT DISCHARGE: Home. CONDITION AT DISCHARGE: Stable. DISCHARGE DIAGNOSES: 1. Alcohol abuse with alcohol withdrawal and Wernicke encephalopathy. 2. Metabolic acidosis related to starvation ketosis due to alcoholism. 3. Mild elevation of liver function test due to mild alcoholic hepatitis. 4. Elevation of troponin likely due to demand ischemia. SECONDARY DIAGNOSES: 1. Hypertension. 2. History of alcoholism. 3. Anxiety. 4. Depression. 5. History of lumbar spine surgery. MEDICATIONS AT DISCHARGE: Include: 1. Lac-Hydrin topical, apply to affected areas of the skin b.i.d. as previously taken. 2. Lipitor 40 mg daily. 3. Fluoxetine 40 mg daily. 4. Imipramine 25 mg at bedtime. 5. Multivitamin 1 tablet daily. 6. Norvasc 5 mg daily. 7. Folic acid 1 mg daily. 8. Thiamine 100 mg daily. 9. Mag oxide 800 mg daily. FOLLOWUP: The patient is recommended to follow up with Dr. Ahn with a scheduled appointment on 08/10/19. The patient also was given information about [facility]. He was strongly encouraged not to drink anymore. LABORATORY DATA DURING THE HOSPITAL STAY: Included, on 08/04/19, sodium 131, potassium 3.6, chloride 98, carbon dioxide 26, BUN 12, creatinine 0.65, magnesium of 1.6. Liver function test on 08/03/19 showed bilirubin of 1.2, AST of 61, ALT of 29, and alkaline phosphatase of 118. The patient's urinalysis on 07/31/19 showed +3 rbc's, trace of protein, trace of glucose. At admission, the patient's alcohol level was 90. The patient's hepatitis acute panel was negative. Abdomen and bladder ultrasound obtained on 07/31/19, impression: "No hydronephrosis noted. The patient could not void. There appears to be a bladder diverticulum." Transthoracic echocardiogram on 07/30/19 showed EF of 50% to 55% with trace mitral regurgitation, aortic regurgitation. The wall motion was noted as normal. Liver ultrasound obtained on 07/27/19, impression: "Diffusely echogenic liver, which could reflect hepatic steatosis or rather chronic underlying hepatocellular disease. Visualized portion of the pancreas appears echogenic. Recommend correlation with pancreatic enzymes." Brain CT obtained at admission, impression: "No acute intracranial pathology. Other chronic findings as above." HOSPITALIZATION COURSE: Neymar Boykin is a 69-year-old male who presented to the hospital on 07/29/19 with complaints of generalized weakness and tremors. For details of the patient's admission, please see history of present illness. Shortly, the patient was noted to be in starvation ketosis likely due to alcoholism. He did well over the initial couple of days and he was almost ready to be discharged, but he started having significant withdrawal symptoms and Wernicke. He was noted to have nystagmus. He was placed on IV thiamine. He also was placed on a standing dose of lorazepam with taper. By the day of discharge on 07/27/18, his tremors resolved and his nystagmus resolved. He was still very weak and deconditioned. He was able to ambulate with a rolling walker and had some problems with getting up, but later on he was rather steady while ambulating independently with an assistance of the walker. As per physical therapy recommendation, the patient was recommended to go to short- term rehabilitation, but he refused. I discussed the problem with the patient' s stepdaughter, Stephenie, who was very involved with the patient's care. Stephenie would prefer for the patient to go to rehab, but she stated that there is a friend of the patient's who is available to stay with the patient for the next few days if he needed to be helped with. The patient also is going to be set up with visiting nurse association and [id number]. The information about alcohol and drug rehab was given to the patient. He was also referred to adult protective services at discharge. I briefly discussed with Stephenie possibility of setting up for the patient or discussing with the patient in the future of placement in assisted living facility. By the time of discharge, the patient is once again ambulating with the walker. He is very deconditioned, but he has had no problems with his mentation and he has had pretty good appetite. He is going to be discharged home and recommendation to follow up with Dr. Ahn as scheduled. PHYSICAL EXAM AT TIME OF DISCHARGE: Blood pressure 127/84, heart rate of 90 and regular, respiratory rate 15, oxygen saturation 98% on room air, temperature 98.5. General: The patient is a very pleasant 69-year-old male, who is in no acute distress. The patient is alert and oriented x3. HEENT: Head: Atraumatic, normocephalic. Eyes: Pupils are equal and reactive to light and accommodation. Oropharynx is clear. Mucosa moist. Neck: Supple. No JVD. No bruit bilaterally. Cardiovascular: Regular rate and rhythm. No murmur. Respiratory: Clear to auscultation bilaterally. Abdomen is soft, nontender. Bowel sounds are present in all 4 quadrants. Extremities: There is no edema. Pulses are 2+ bilaterally. No clubbing or cyanosis. On neuro evaluation, speech clear. Cranial nerves II through XII grossly intact. Motor strength is 5/5 bilaterally. Please note that this is a short summary of the patient's hospitalization. Please refer to further medical records for details. TIME SPENT: Approximately 45 minutes was spent in preparation of the patient's discharge. [id number]/CPS #: [id number] [email or web address]
== END 2019-08-04 12:45 | disposition home or self-care (01) | DRG 897 ==
LOC: ED 16:40 → MEDTELE 21:32
PROVIDERS: ADMIT Internal Medicine; ATTEND Internal Medicine
DX: F10.239 Alcohol dependence with withdrawal, unspecified (principal); E87.2 Acidosis; I24.8 Other forms of acute ischemic heart disease; E51.2 Wernicke's encephalopathy; K70.10 Alcoholic hepatitis without ascites; I10 Essential (primary) hypertension; F41.9 Anxiety disorder, unspecified; E78.5 Hyperlipidemia, unspecified; N32.3 Diverticulum of bladder; R25.1 Tremor, unspecified; R31.9 Hematuria, unspecified; R26.81 Unsteadiness on feet; F32.9 Major depressive disorder, single episode, unspecified; H55.00 Unspecified nystagmus; Z88.0 Allergy status to penicillin; Y90.4 Blood alcohol level of 80-99 mg/100 ml; Z88.2 Allergy status to sulfonamides; Z98.1 Arthrodesis status
CPT/HCPCS: 36415; 70450; 76705; 76770; 80048; 80053; 80061; 80074; 80320; 80329; 81003; 81015; 82607; 82746; 82803; 83036; 83605; 83735; 83880; 84443; 84484; 85025; 85610; 86140; 87086; 93005; 93306; 96365; 99284; A9270-GY; G0480; J1650; J2060; J3411; J3475; J3480